=== PATIENT | male | born 1955 | race Caucasian/White ===

== ENCOUNTER 2018-02-19 12:25 | Emergency (ER) | payer BC ==
--- NOTE | 2018-02-19 12:47 | EDM.PDOC ---
ED HPI GENERAL MEDICAL PROBLEM - General Chief Complaint: General Stated Complaint: left foot injury Time Seen by Provider: 02/19/18 12:35 Source of Information: Reports: Patient History Limitations: Reports: No Limitations - History of Present Illness INITIAL COMMENTS - FREE TEXT/NARRATIVE: 62 YO WM was using a 2500 PSI steam/shaker washer and he accidentally pulled the trigger while the tip of the shaker washer was against his boot. Pt has a 2nd degree burn to top of left foot and a small puncture wound to top of foot without laceration. Pt denies any other injury. Pt reports pain is related to the burn on top of his foot, but since he was bleeding he decided to come to ER for evaluation. Onset: Today Onset Date: 02/19/18 Onset Time: 11:55 Duration: Hour(s): (1) Location: Reports: Lower Extremity, Left Quality: Reports: Ache Severity: Moderate Improves with: Reports: None Worsens with: Reports: None Associated Symptoms: Reports: No Other Symptoms Left Feet Pain Score (Numeric/FACES): 6 - Related Data Allergies Allergy/AdvReac Type Severity Reaction Status Date / Time No Known Drug Allergies Allergy Cannot Verified 02/19/18 12:35 Remember Home Meds: Home Meds Amoxicillin 500 mg PO TID 02/19/18 [History] Amoxicillin/Clavulanate K [Augmentin 875-125 MG] 1 tab PO BID #20 tablet [Rx] traMADol [Ultram] 50 mg PO Q6H PRN #15 tab 02/19/18 [Rx] Social & Family History - Tobacco Use Smoking Status *Q: Never Smoker Second Hand Smoke Exposure: No - Caffeine Use Caffeine Use: Reports: Coffee, Tea - Alcohol Use Days Per Week of Alcohol Use: 5 Number of Drinks Per Day: 2 Total Drinks Per Week: 10 - Recreational Drug Use Recreational Drug Use: No ED ROS GENERAL - Review of Systems Review Of Systems: See Below Constitutional: Reports: No Symptoms HEENT: Reports: No Symptoms Respiratory: Reports: No Symptoms Cardiovascular: Reports: No Symptoms Endocrine: Reports: No Symptoms GI/Abdominal: Reports: No Symptoms : Reports: No Symptoms Musculoskeletal: Reports: Foot Pain Skin: Reports: Wound, Burn(s) Neurological: Reports: No Symptoms Psychiatric: Reports: No Symptoms Hematologic/Lymphatic: Reports: No Symptoms Immunologic: Reports: No Symptoms ED EXAM, GENERAL - Physical Exam Exam: See Below Exam Limited By: No Limitations General Appearance: Alert, WD/WN, No Apparent Distress Head: Atraumatic, Normocephalic Neck: Normal Inspection, Supple, Non-Tender, Full Range of Motion Respiratory/Chest: No Respiratory Distress, Lungs Clear, Normal Breath Sounds, No Accessory Muscle Use, Chest Non-Tender Cardiovascular: Normal Peripheral Pulses, Regular Rate, Rhythm, No Edema, No Gallop, No JVD, No Murmur, No Rub GI/Abdominal: Normal Bowel Sounds, Soft, Non-Tender, No Organomegaly, No Distention, No Abnormal Bruit, No Mass Back Exam: Normal Inspection, Full Range of Motion, NT Extremities: Normal Inspection, Normal Range of Motion, No Pedal Edema, Normal Capillary Refill. No: Non-Tender Neurological: Alert, Oriented, CN II-XII Intact, Normal Cognition, Normal Gait, Normal Reflexes, No Motor/Sensory Deficits Psychiatric: Normal Affect, Normal Mood Skin Exam: Warm, Other (2nd degree burn to top of foot- noncircumferential; small puncture wound to top of foot- not through and through) Lymphatic: No Adenopathy Course - Vital Signs Last Recorded V/S: Last Vital Signs Temp 36.3 C 02/19/18 12:30 Pulse 82 02/19/18 12:30 Resp 18 02/19/18 12:30 BP 127/77 02/19/18 12:30 Pulse Ox 98 02/19/18 12:30 - Orders/Labs/Meds Orders: Active Orders 24 hr Category Date Time Status Vaccines to be Administered [RC] PER UNIT ROUTINE Care 02/19/18 12:48 Active Foot Comp Min 3V Lt [CR] Stat Exams 02/19/18 12:48 Taken Amoxicillin/Clavulanate K [Augmentin 875 MG/125 MG] Med 02/19/18 13:52 Once 1 tab PO ONETIME ONE Medication Orders Amoxicillin/Clavulanate Potassium (Augmentin 875 Mg/125 Mg) 1 tab PO ONETIME ONE Stop: 02/19/18 13:53 Meds: Medications Generic Name Dose Route Start Last Admin Trade Name Freq PRN Reason Stop Dose Admin Amoxicillin/Clavulanate Potassium 1 tab 02/19/18 13:52 Augmentin 875 Mg/125 Mg PO 02/19/18 13:53 ONETIME ONE Discontinued Medications Generic Name Dose Route Start Last Admin Trade Name Freq PRN Reason Stop Dose Admin Diphtheria/Tetanus/Acell Pertussis 0.5 ml 02/19/18 12:48 02/19/18 13:21 Adacel IM 02/19/18 12:49 0.5 ml .ONCE ONE Administration Silver Sulfadiazine 1 gm 02/19/18 12:59 Silvadene 1% Cream 50 Gm TOP 02/19/18 13:00 ONETIME ONE - Radiology Interpretation Free Text/Narrative:: Left foot- no foreign body noted - Re-Assessments/Exams Free Text/Narrative Re-Assessment/Exam: 02/19/18 13:[address] Becerril- Pritesh (Shae Givens) who agrees with outpatient management- Augmentin 875mg PO BID x 10 days and foolow up in office next 2 days for recheck. Pt has been instructed to return to ER for worsening symptoms Departure - Departure Time of Disposition: 13:38 Disposition: Home, Self-Care 01 Condition: Good Clinical Impression: Effect of air pressure and water pressure, unspecified, initial encounter Burn of foot, left, second degree Qualifiers: Encounter type: initial encounter Qualified Code(s): T25.222A - Burn of second degree of left foot, initial encounter Puncture wound of foot Qualifiers: Encounter type: initial encounter Laterality: left Qualified Code(s): S91.332A - Puncture wound without foreign body, left foot, initial encounter - Discharge Information Prescriptions: Amoxicillin/Clavulanate K [Augmentin 875-125 MG] 1 tab PO BID #20 tablet traMADol [Ultram] 50 mg PO Q6H PRN #15 tab PRN Reason: Pain Instructions: Puncture Wound, [id number], Second-Degree Burn, Adult Referrals: PCP,Not In Area [Primary Care Provider] - Juan Becerril DPM [Ordering Only Provider] - Forms: ED Department Discharge Additional Instructions: 1. discharge home 2. follow up with Dr Becerril- Shae Givens next 48 hours for recheck 3. Ultram 50mg PO Q6 PRN pain #15 4. Augmentin 875mg PO BID x 10 days 5. good wound/burn care to foot 6. return to ER for worsening symptoms - My Orders Last 24 Hours: My Active Orders 02/19/18 12:48 Vaccines to be Administered [RC] PER UNIT ROUTINE Foot Comp Min 3V Lt [CR] Stat 02/19/18 13:52 Amoxicillin/Clavulanate K [Augmentin 875 MG/125 MG] 1 tab PO ONETIME ONE - Assessment/Plan Last 24 Hours: My Active Orders 02/19/18 12:48 Vaccines to be Administered [RC] PER UNIT ROUTINE Foot Comp Min 3V Lt [CR] Stat 02/19/18 13:52 Amoxicillin/Clavulanate K [Augmentin 875 MG/125 MG] 1 tab PO ONETIME ONE Assessment:: 1. 2nd degree burn to top of left foot 2. shaker washer injury with puncture wound to left foot Plan: 1. discharge home 2. follow up with Dr Adrian Givens next 48 hours for recheck 3. Ultram 50mg PO Q6 PRN pain #15 4. Augmentin 875mg PO BID x 10 days 5. good wound/burn care to foot 6. return to ER for worsening symptoms
[2018-02-19] MEDS ORDERED: Diphtheria,Pertussis(Acell),Tetanus Vaccine 0.5 ML SDV IM ONE (12:48)
[2018-02-19] MEDS ORDERED: Silver Sulfadiazine 1% Crm 50 GM Tube TOP ONE (12:59)
[2018-02-19] MEDS ORDERED: Amoxicillin/Clavulanate K 875-125 MG Tab PO ONE (13:52)
== END 2018-02-19 14:00 | disposition home or self-care (01) ==
LOC: KA.ED 12:25
DX: T25.222A Burn of second degree of left foot, initial encounter (principal); S91.332A Puncture wound without foreign body, left foot, initial encounter; T70 Effects of air pressure and water pressure; Z23 Encounter for immunization; Z79.899 Other long term (current) drug therapy; X12.XXXA Contact with other hot fluids, initial encounter
CPT/HCPCS: 16020; 73630; 90471; 90715; 99283; A9270